=== PATIENT | male | born 1970 | race Caucasian/White ===

== ENCOUNTER 2021-01-02 07:36 | Emergency (ER) | payer BC ==
--- NOTE | 2021-01-02 07:38 | EDM.PDOC ---
ED HPI GENERAL MEDICAL PROBLEM - General Chief Complaint: Upper Extremity Injury/Pain Stated Complaint: left hand Time Seen by Provider: 01/02/21 07:36 Source of Information: Reports: Patient History Limitations: Reports: No Limitations - History of Present Illness INITIAL COMMENTS - FREE TEXT/NARRATIVE: Patient comes emergency department today from home with complaints of a la ceration to the palm of his left hand. The patient was at home this morning when he was working on a wash machine when he reached to grab a tool inside the wash machine and ended up lacerating the pad on the palm of his left thumb on his hand. This happened just prior to arrival. He denies any paresthesias to his left thumb. He is unsure of what his last tetanus shot was. He denies any other injury other than to the pad on the left palm of his thumb. - Related Data Allergies Allergy/AdvReac Type Severity Reaction Status Date / Time No Known Allergies Allergy Verified 01/02/21 07:37 Home Meds: Home Meds . [No Known Home Meds] 01/02/21 [History] Review of Systems - Review of Systems Review Of Systems: Comprehensive ROS is negative, except as noted in HPI. ED EXAM, GENERAL - Physical Exam Exam: See Below Exam Limited By: No Limitations General Appearance: Alert, WD/WN, No Apparent Distress Respiratory/Chest: No Respiratory Distress Cardiovascular: Normal Peripheral Pulses, Regular Rate, Rhythm Peripheral Pulses: 2+: Radial (L), Radial (R) Extremities: Other (Rest of the hand is atraumatic). No: Normal Inspection (On the pad surface on the palm of his left thumb in the metacarpal region there is a distal to proximal approximate 5-1/2 cm laceration that extends into the subcutaneous tissue. Range of motion is appropriate to the left thumb. He is able to flex and extend at the MCP and IP joint of the left mik) Neurological: Alert, Oriented, No Motor/Sensory Deficits Psychiatric: Normal Affect, Normal Mood Skin Exam: Warm, Dry, Intact, Normal Color, No Rash ED TRAUMA EXTREMITY PROCEDURES - Laceration/Wound Repair Left Ventral Hand Lac/Wound Length In cm: 5.5 Appearance: Subcutaneous (Extends past the subcut does expose the muscle fascia although does not involve the muscle or fascia. ), Clean Distal NVT: Neuro & Vascular Intact, No Tendon Injury Anesthetic Type: Local Local Anesthesia - Lidocaine (Xylocaine): 1% Plain Local Anesthetic Volume: Other (6cc) Skin Prep: Chlorhexidine (Hibiciens), Saline Saline Irrigation (cc's): 500 Exploration/Debridement/Repair: Wound Explored, In a Bloodless Field, Explored to Base, Multiple Flaps Aligned Closed With: Sutures Suture Size: 4-0 Suture Type: Nylon Sterile Dressing Applied: Nurse Tetanus Status Addressed: Yes Course - Orders/Labs/Meds Orders: Active Orders 24 hr Category Date Time Status Vaccines to be Administered [RC] PER UNIT ROUTINE Care 01/02/21 08:27 Active Meds: Medications Discontinued Medications Generic Name Dose Route Start Last Admin Trade Name Crystal PRN Reason Stop Dose Admin Bacitracin 1 dose 01/02/21 08:27 01/02/21 08:47 Bacitracin Oint 1 Gm U/D Packet TOP 01/02/21 08:28 1 dose ONETIME ONE Administration Diphtheria/Tetanus/Acell Pertussis 0.5 ml 01/02/21 08:27 01/02/21 08:47 Diphtheria,Pertussis(Acell),Tetanus Vaccine 0.5 Ml Syringe IM 01/02/21 08:28 0.5 ml .ONCE ONE Administration Lidocaine HCl 10 ml 01/02/21 07:37 01/02/21 07:53 Lidocaine 1% 5 Ml Sdv INJECT 01/02/21 07:38 10 ml ONETIME ONE Administration - Re-Assessments/Exams Free Text/Narrative Re-Assessment/Exam: 01/02/21 Please see procedure note for repair. Tetanus updated. Departure - Departure Time of Disposition: 08:25 Disposition: Home, Self-Care 01 Clinical Impression: Laceration of left palm Qualifiers: Encounter type: initial encounter Qualified Code(s): S61.412A - Laceration without foreign body of left hand, initial encounter - Discharge Information Instructions: Laceration Care, Adult, [id number], Pain Medicine Instructions, [id number] Referrals: Sahra Turner PA [Primary Care Provider] - Forms: ED Department Discharge Additional Instructions: Cleanse the wound twice daily with soap and water. Bacitracin and bandage until healed. Watch for signs of infection. Running water over the laceration is fine do not soak the hand in water. Sutures out in 10 days. Return to the emergency department new or worsening symptoms. Follow-up with primary care in 10 days for suture removal sooner if any concerns or issues. - My Orders Last 24 Hours: My Active Orders 01/02/21 08:27 Vaccines to be Administered [RC] PER UNIT ROUTINE - Assessment/Plan Last 24 Hours: My Active Orders 01/02/21 08:27 Vaccines to be Administered [RC] PER UNIT ROUTINE
[2021-01-02] MEDS: Diphtheria,Pertussis(Acell),Tetanus Vaccine 0.5 ML Syringe IM ONE (08:47)
[2021-01-02] MEDS: Bacitracin Oint 1 GM U/D Packet TOP ONE (08:47)
== END 2021-01-02 08:51 | disposition home or self-care (01) ==
LOC: LL.ED 07:36
DX: S61.412A Laceration without foreign body of left hand, initial encounter (principal); Z23 Encounter for immunization; W31.89XA Contact with other specified machinery, initial encounter; Y99.0 Civilian activity done for income or pay
CPT/HCPCS: 12002; 90471; 90715; 99282-25; 99283